=== PATIENT | female | born 1955 | race Caucasian/White ===

== ENCOUNTER 2017-11-12 14:43 | Emergency (ER) | payer BC ==
[2017-11-12 15:07] VITALS: TEMP 97.3
--- NOTE | 2017-11-12 15:13 | ED.PDOC ---
History of Present Illness - General Chief Complaint: Chest Pain/[place] Stated Complaint: chest and shoulder pain Time Seen by Provider: 11/12/17 15:08 Source: patient Exam Limitations: no limitations - History of Present Illness Initial Comments: THIS PATIENT COMES TO THE ED WITH PAIN TO THE LEFT POSTERIOR CHEST AREA ASSOCIATED WITH LEFT ARM WEAKNESS. DENIES SOB, NAUSEA OR VOMITING, DIAPHORESIS OR COUGH. THE PAIN IS SHARP AND INTERMITTENT AND AT TIMES EXACERBATES. SHE HAS A HX OF HYPOTHYROIDISM. Timing/Duration: 1-3 hours Severity/Quality: moderate Location: back Chest Pain Radiation: no radiation Prior Chest Pain/Cardiac Workup: no prior chest pain Improving Factors: nothing Worsening Factors: nothing Aspirin Treatment Today: 325 mg x 1 Associated Symptoms: denies symptoms Allergies/Adverse Reactions: Allergies Sulfa Antibiotics Allergy (Verified 11/12/17 15:07) Home Medications: Ambulatory Orders Diclofenac Sodium [Diclofenac Sodium Dr] 50 mg PO BID #10 tab 11/12/17 Levothyroxine Sodium [Synthroid] 0.112 mg PO DAILY 11/12/17 Rhodiola Rosea [Rhodiola] 500 mg PO DAILY 11/12/17 Review of Systems - Review of Systems Constitutional: States: no symptoms reported EENTM: States: no symptoms reported Respiratory: States: no symptoms reported Cardiology: States: chest pain Gastrointestinal/Abdominal: States: no symptoms reported Genitourinary: States: no symptoms reported Musculoskeletal: States: no symptoms reported Skin: States: no symptoms reported Neurological: States: no symptoms reported Endocrine: States: no symptoms reported Hematologic/Lymphatic: States: no symptoms reported Past Medical History (General) - Patient Medical History Hx Stroke: No Hx Congestive Heart Failure: No Hx Diabetes: No - Vaccination History Hx Influenza Vaccination: No Hx Pneumococcal Vaccination: No - Social History Hx Tobacco Use: No Family Medical History - Family History Maternal Grandparents Family History: Unknown Living Status: Age at (years of age): 68 Cause of : CVA Hx Family;Other: Maternal grandfather at 68 of CVA Physical Exam - Physical Exam General Appearance: Alert, Comfortable, Other - MILD DISTRESS Neck: non-tender, full range of motion, supple Respiratory: normal breath sounds, no respiratory distress, no accessory muscle use, other - TENDERNESS ON PALPATION TO THE LEFT POSTERIOR CHEST WALL Cardiovascular/Chest: normal peripheral pulses, regular rate, rhythm, no edema, no gallop, no JVD, no murmur Peripheral Pulses: radial,right: 2+, radial,left: 2+ Rectal Exam: deferred Extremity: normal range of motion Neurologic: no motor/sensory deficits, alert, normal mood/affect, oriented x 3 Progress - Results/Orders Results/Orders: the cxr is negative THE PULMONARY CTA: NEGATIVE FOR RI. - EKG/XRAY/CT EKG: Atrial, Sinus, no ST T wave changes - Sinus rythm, no acaute injury pattern Departure - Departure Clinical Impression: Musculoskeletal chest pain Time of Disposition: 17:26 Disposition: Discharge to Home or Self Care Condition: Good Departure Forms: ED Discharge - Pt. Copy, Patient Portal Self Enrollment Instructions: DI for Chest Pain Diet: resume usual diet Prescriptions: Diclofenac Sodium [Diclofenac Sodium Dr] 50 mg PO BID #10 tab Home Medications: Ambulatory Orders Diclofenac Sodium [Diclofenac Sodium Dr] 50 mg PO BID #10 tab 11/12/17 Levothyroxine Sodium [Synthroid] 0.112 mg PO DAILY 11/12/17 Rhodiola Rosea [Rhodiola] 500 mg PO DAILY 11/12/17
--- NOTE | 2017-11-12 15:41 | RAD ---
EXAM DESCRIPTION: Chest,1 View CLINICAL HISTORY: chest pain COMPARISON: None. FINDINGS: Cardiac silhouette is within normal limits. There is no focal parenchymal or pleural disease. Visualized osseous structures are within normal limits. IMPRESSION: No evidence of acute cardiopulmonary disease. Electronically signed by: Demar Shelley 11/12/2017 3:40 PM CDT
--- NOTE | 2017-11-12 17:21 | CT ---
PROCEDURE: CTA Chest CLINICAL HISTORY: 62 years Female CHEST PAIN, ELEVATED D-DIMER COMPARISON: None. TECHNIQUE: Contiguous axial images were obtained through the chest during the infusion of IV contrast. Reformatted images obtained. MIP reformatted images obtained. This exam was performed according to our department optimization program which includes automated exposure control, adjustment of the mA and/or kv according to patient size and/or use of iterative reconstruction technique. FINDINGS: There is a nonobstructive left renal stone measuring 2 mm. The lungs are clear. No pneumothorax is seen. Heart size is normal. No pleural effusions. No lymphadenopathy. No PE is seen. No evidence of aortic aneurysm. No other significant abnormality. IMPRESSION: No evidence of pulmonary embolus. Electronically signed by: Demar Shelley 11/12/2017 5:19 PM CDT
[2017-11-12 17:49] VITALS: BP 166/101; O2SAT 100
== END 2017-11-12 17:49 | disposition home or self-care (01) ==
LOC: ER 14:43
DX: R07.89 Other chest pain (principal); E03.9 Hypothyroidism, unspecified; Z79.899 Other long term (current) drug therapy; Z82.49 Family history of ischemic heart disease and other diseases of the circulatory system